=== PATIENT | female | born 1965 | race Caucasian/White ===

== ENCOUNTER 2018-04-19 07:32 | Emergency (ER) | payer BC ==
--- OUTSIDE RECORDS SUMMARY | 2018-04-19 07:35 | XMS REPORT ---
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1 Active Assessment Mixed hyperlipidemia E78.2 Active Problem Grief F43.21 Active Assessment Atherosclerosis, generalized I70.91 Active Problem Angina at rest I20.8 Active Medications Medication Code Code Instructions Start End Status Dosage System Date Date Aspirin EC [facility] 51738021125 81 MG Orally Active 1 tablet Once a day Minivelle [facility] 60874066473 0.075 MG/24HR Active 1 patch Transdermal Two to skin times a Week Tylenol # 3 ND 0 300/30mg PO Active one tab every 6 hrs Topiramate ND 59389346606 25 MG Orally Active 2 tabs in Twice a day AM 1tab in PM Co-Enzyme Q10 ND 01632251641 100 MG Orally Active 1 capsule Once a day with a meal Cyclobenzaprine ND 79638290702 5 MG Orally Two Active 1 tablet HCl times a day as needed Fioricet [facility] 57534873778 50-300-40 MG Active 1-2 Orally every 4 capsule hrs as needed Premarin ND 74646061933 1.25 MG Orally Active 1 tablet Daily for Three Weeks, 1 Week off Diazepam [facility] 14048717614 10 MG Orally Active 1/2 to 1 PRN tablet as needed Nexium ND 74553997669 20 MG Orally Active 1 capsule Once a day Zetia [facility] 79516587810 10 MG Orally Active 1 tablet Once a day Prozac [facility] 02389556189 20 MG Orally Active 1 capsule Once a day in the morning Wellbutrin SR [facility] 65565050436 150 MG Orally Active 2tablets in AM 1 tablet in PM Results No Known Results Summary Purpose eClinicalWorks Submission
--- OUTSIDE RECORDS SUMMARY | 2018-04-19 07:35 | XMS REPORT ---
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 Active Problem Vitamin B12 deficiency E53.8 Active Problem Grief F43.21 Active Problem Angina at rest I20.8 Active Problem Mixed hyperlipidemia E78.2 Active Problem Paresthesia R20.2 Active Problem Depression with anxiety F41.8 Active Problem Low back pain, unspecified back M54.5 Active pain laterality, unspecified chronicity, with sciatica presence unspecified Problem Atherosclerosis, generalized I70.91 Active Problem GERD without esophagitis K21.9 Active Problem Elevated blood pressure reading R03.0 Active without diagnosis of hypertension Medications Medication Code Code Instructions Start End Status Dosage System Date Date Wellbutrin SR [facility] [address]-78 150 MG Orally Active 2tablets in AM 1 tablet in PM Minivelle [facility] 63573614532 0.075 MG/24HR Active 1 patch Transdermal Two to skin times a Week Nexium [facility] 66710814032 20 MG Orally Active 1 capsule Once a day Zetia [facility] 67691139384 10 MG Orally Active 1 tablet Once a day Aspirin EC [facility] 22633567523 81 MG Orally Active 1 tablet Once a day Fioricet [facility] [address]-20 50-300-40 MG Active 1-2 Orally every 4 capsule hrs as needed Prozac [facility] 26288418885 20 MG Orally Active 1 capsule Once a day in the morning Topiramate [facility] [address]-62 25 MG Orally Active 2 tabs in Twice a day AM 1tab in PM Tylenol # 3 ND 0 300/30mg PO Active one tab every 6 hrs Premarin [facility] 15201519412 1.25 MG Orally Active 1 tablet Daily for Three Weeks, 1 Week off Cyclobenzaprine [facility] [address]-51 5 MG Orally Two Active 1 tablet HCl times a day as needed Co-Enzyme Q10 [facility] [address]2397 100 MG Orally Active 1 capsule Once a day with a meal Diazepam [facility] 19712454376 10 MG Orally Active 1/2 to 1 PRN tablet as needed Results No Known Results Summary Purpose eClinicalWorks Submission
[2018-04-19] MEDS ORDERED: NA CHLORIDE 0.9% 1,000 ML ONE (08:15)
[2018-04-19] MEDS ORDERED: FENTANYL CITR 100 MCG/2 ML ONE (08:15)
--- NOTE | 2018-04-19 08:26 | RAD REPORT ---
EXAM DESCRIPTION: [facility]04/19/2018 8:05 am CLINICAL HISTORY: left leg pain COMPARISON: None. FINDINGS: Left common femoral, superficial femoral, popliteal and posterior tibial veins are compre ssible and demonstrate augmentation. Doppler demonstrates good flow. IMPRESSION: No evidence of deep venous thrombosis involving the left lower extremity.
[2018-04-19 09:52] LABS: Absolute Lymphocytes (CBC) 1.5 K/uL (0.7-4.9); Absolute Monocytes 0.4 K/uL (0.1-1.3); Absolute Neutrophil 3.6 K/uL (1.8-8.0); Basophils % 0.6 % (0-1.3); Eosinophils % 2.6 % (0-4.4); Hematocrit 43.4 % (36.0-45.0); Lymphocytes % 26.4 % (15.3-44.8); MCH 30.7 pg (27.0-35.0); MCV 91.2 fL (80-100); MPV 8.4 fL (7.6-11.3); Monocytes % 7.5 % (3.3-12.3); RBC Red Blood Cell Count 4.76 M/uL (3.86-4.86)
[2018-04-19 10:03] LABS: Protime INR 0.92
--- NOTE | 2018-04-19 10:38 | ER ---
Nurse's Notes [facility] Name: Hilary Alvarenga Age: 53 yrs Sex: Female : 1965 Arrival Date: 04/19/2018 Time: 07:35 Bed 15 Private MD: Racheal Angulo Diagnosis: Myalgia;Muscle spasm of calf Presentation: 04/19 07:41 Presenting complaint: Patient states: Pt states that she felt a "jim horse" to her ss L calf 4 days ago and since then her leg has been hurting. Also reports mild increase in swelling to affected leg. Transition of care: patient was not received from another setting of care. Onset of symptoms was April 15, 2018. Risk Assessment: Do you want to hurt yourself or someone else? Patient reports no desire to harm self or others. Initial Sepsis Screen: Does the patient meet any 2 criteria? No. Patient's initial sepsis screen is negative. Does the patient have a suspected source of infection? No. Patient's initial sepsis screen is negative. Care prior to arrival: None. 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 - Social history:: Smoking status: Patient/guardian denies using tobacco. - Ebola Screening: : Patient denies exposure to infectious person Patient denies travel to an Ebola-affected area in the 21 days before illness onset. Screenin:38 Abuse screen: Denies threats or abuse. Nutritional screening: No deficits noted. rb1 Tuberculosis screening: No symptoms or risk factors identified. Fall Risk None identified. Assessment: 07:38 General: Appears in no apparent distress. comfortable, Behavior is calm, cooperative. rb1 Pain: Complains of pain in left calf. Neuro: Level of Consciousness is awake, alert, obeys commands, Oriented to person, place, time, situation. Cardiovascular: Capillary refill < 3 seconds is brisk in bilateral toes. Respiratory: Airway is patent Respiratory effort is even, unlabored, Respiratory pattern is regular, symmetrical. 08:37 Reassessment: Patient appears in no apparent distress at this time. No changes from rb1 previously documented assessment. 09:37 Reassessment: Patient appears in no apparent distress at this time. Patient and/or rb1 family updated on plan of care and expected duration. Pain level reassessed. Patient is alert, oriented x 3, equal unlabored respirations, skin warm/dry/pink. at bedside. 10:30 Reassessment: Patient appears in no apparent distress at this time. Patient and/or rb1 family updated on plan of care and expected duration. Pain level reassessed. Patient is alert, oriented x 3, equal unlabored respirations, skin warm/dry/pink. 11:10 Reassessment: Patient appears in no apparent distress at this time. No changes from rb1 previously documented assessment. Vital Signs: 07:44 BP 157 / 81; Pulse 90; Resp 17; Temp 98.6(O); Pulse Ox 98% on R/A; Weight 90.72 kg; ss Height 4 ft. 11 in. (149.86 cm); Pain 6/10; 08:40 BP 144 / 86; Pulse 80; Resp 18; Pulse Ox 95% on R/A; rb1 09:32 BP 137 / 87; Pulse 79; Resp 17; Pulse Ox 96% on R/A; mh5 10:30 BP 128 / 72; Pulse 87; Resp 17; Pulse Ox 96% on R/A; rb1 07:44 Body Mass Index 40.39 (90.72 kg, 149.86 cm) ED Course: 07:35 Patient arrived in ED. sb2 07:35 Racheal Angulo MD is Private Physician. sb2 07:38 Ashlyn Carr FNP-C [facility]. snw 07:38 Reddy Piña MD is Attending Physician. snw 07:38 Katlyn Hernandez, ANGEL is Primary Nurse. rb1 07:38 Patient has correct armband on for positive identification. Bed in low position. Call rb1 light in reach. Side rails up X 1. Pulse ox on. NIBP on. Warm blanket given. 07:43 Triage completed. ss 07:44 Arm band placed on right wrist. ss 08:03 Patient taken to ultrasound. hr 08:05 US Extremity Venous Unilateral Ltd In Process Unspecified. EDMS 08:08 Missed attempt(s): 22 gauge in right antecubital area. rb1 08:50 Ultrasound completed. Patient tolerated well. hr 09:00 Missed attempt(s): 22 gauge in left forearm. upper arm. mh5 10:37 Racheal Angulo MD is Referral Physician. snw 11:10 No provider procedures requiring assistance completed. Patient did not have IV access rb1 during this emergency room visit. Administered Medications: 09:35 Drug: fentaNYL (PF) 50 mcg {Note: We were unable to access an IV so the provider rb1 switched the method to IM. Administered in the left gluteus.} Route: IVP; Site: Other; 10:00 Follow up: Response: No adverse reaction; Pain is decreased rb1 11:09 Not Given (provider discretion): NS 0.9% 1000 ml IV at 125 ml/hr continuous rb1 Outcome: 10:38 Discharge ordered by MD. snw 11:10 Patient left the ED. rb1 11:10 Discharged to home ambulatory. rb1 11:10 Condition: stable 11:10 Discharge instructions given to patient, Instructed on discharge instructions, follow up and referral plans. medication usage, Demonstrated understanding of instructions, follow-up care, medications, Prescriptions given X 2. Signatures: Dispatcher [employer] EDLA Ashlyn Carr, ARNAV-C HAND I BLOCKER-CsnSelma Stahl Shelby, ANGEL RN ss Katlyn Hernandez, RN RN rb1 Dolores Crockett 5 Brenda Jack sb2 Corrections: (The following items were deleted from the chart) 09:42 09:39 Reassessment: rb1 11:18 11:16 Patient left the ED. rb1 rb1
--- NOTE | 2018-04-19 10:39 | EDPHYS ---
Physician Documentation [facility] Name: Hilary Alvarenga Age: 53 yrs Sex: Female : 1965 Arrival Date: 04/19/2018 Time: 07:35 Bed 15 Private MD: Racheal Angulo ED Physician Reddy Piña HPI: 04/19 08:05 This 53 yrs old Female presents to ER via Ambulatory with complaints of Leg snw Pain. 08:05 The patient presents with pain, that is acute. The complaints affect the left calf. snw Context: The problem was sustained at home, resulted from muscle spasm, the patient is able to ambulate. Onset: The symptoms/episode began/occurred suddenly, 4 day(s) ago, and became persistent. Associated signs and symptoms: Pertinent positives: calf tenderness. Treatment prior to arrival includes: no previous treatment. Severity of symptoms: At their worst the symptoms were moderate. The patient has not experienced similar symptoms in the past. The patient has been recently seen by a physician: the patient's primary care provider, Dr. Azul. Seen at PCP per Dr. Chang as PCP was out of town. Pt states he recommended counseling for somatic complaints. 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 - Social history:: Smoking status: Patient/guardian denies using tobacco. - Ebola Screening: : Patient denies exposure to infectious person Patient denies travel to an Ebola-affected area in the 21 days before illness onset. ROS: 08:04 Constitutional: Negative for fever, chills, and weight loss, Eyes: Negative for injury, snw pain, redness, and discharge, ENT: Negative for injury, pain, and discharge, Neck: Negative for injury, pain, and swelling, Cardiovascular: Negative for chest pain, palpitations, and edema, Respiratory: Negative for shortness of breath, cough, wheezing, and pleuritic chest pain, Abdomen/GI: Negative for abdominal pain, nausea, vomiting, diarrhea, and constipation, Back: Negative for injury and pain, : Negative for injury, bleeding, discharge, and swelling, Skin: Negative for injury, rash, and discoloration, Neuro: Negative for headache, weakness, numbness, tingling, and seizure. 08:04 MS/extremity: Positive for pain, swelling, tenderness, of the left calf. Exam: 08:03 Constitutional: This is a well developed, well nourished patient who is awake, alert, snw and in no acute distress. 08:03 Eyes: Pupils equal round and reactive to light, extra-ocular motions intact. Lids and lashes normal. Conjunctiva and sclera are non-icteric and not injected. Cornea within normal limits. Periorbital areas with no swelling, redness, or edema. ENT: Nares patent. No nasal discharge, no septal abnormalities noted. Tympanic membranes are normal and external auditory canals are clear. Oropharynx with no redness, swelling, or masses, exudates, or evidence of obstruction, uvula midline. Mucous membranes moist. Neck: Trachea midline, no thyromegaly or masses palpated, and no cervical lymphadenopathy. Supple, full range of motion without nuchal rigidity, or vertebral point tenderness. No Meningismus. Chest/axilla: Normal chest wall appearance and motion. Nontender with no deformity. No lesions are appreciated. Cardiovascular: Regular rate and rhythm with a normal S1 and S2. No gallops, murmurs, or rubs. Normal PMI, no JVD. No pulse deficits. Respiratory: Lungs have equal breath sounds bilaterally, clear to auscultation and percussion. No rales, rhonchi or wheezes noted. No increased work of breathing, no retractions or nasal flaring. Abdomen/GI: Soft, non-tender, with normal bowel sounds. No distension or tympany. No guarding or rebound. No evidence of tenderness throughout. + truncal obesity Back: No spinal tenderness. No costovertebral tenderness. Full range of motion. Skin: Warm, dry with normal turgor. Normal color with no rashes, no lesions, and no evidence of cellulitis. Neuro: Awake and alert, GCS 15, oriented to person, place, time, and situation. Cranial nerves II-XII grossly intact. Motor strength 5/5 in all extremities. Sensory grossly intact. Cerebellar exam normal. Normal gait. Psych: Awake, alert, with orientation to person, place and time. Behavior, mood, and affect are within normal limits. 08:03 Head/face: Noted is rash, Malar. 08:03 Musculoskeletal/extremity: ROM: no acute changes, Circulation is intact in all extremities. the left calf Severe pain noted. Weight bearing: able to fully bear weight, DVT Exam: tenderness, that is moderate, of the left leg, of the left calf. Vital Signs: 07:44 BP 157 / 81; Pulse 90; Resp 17; Temp 98.6(O); Pulse Ox 98% on R/A; Weight 90.72 kg; ss Height 4 ft. 11 in. (149.86 cm); Pain 6/10; 08:40 BP 144 / 86; Pulse 80; Resp 18; Pulse Ox 95% on R/A; rb1 09:32 BP 137 / 87; Pulse 79; Resp 17; Pulse Ox 96% on R/A; mh5 10:30 BP 128 / 72; Pulse 87; Resp 17; Pulse Ox 96% on R/A; rb1 07:44 Body Mass Index 40.39 (90.72 kg, 149.86 cm) ss MDM: 07:38 Patient medically screened. snw 10:40 Data reviewed: vital signs, nurses notes. Data interpreted: Pulse oximetry: on room air snw is 96 %. Interpretation: normal. Counseling: I had a detailed discussion with the patient and/or guardian regarding: the historical points, exam findings, and any diagnostic results supporting the discharge/admit diagnosis, the presence of at least one elevated blood pressure reading (>120/80) during this emergency department visit, lab results, radiology results, the need for outpatient follow up, to return to the emergency department if symptoms worsen or persist or if there are any questions or concerns that arise at home. ED course: Pt reports that Malar rash and intermittent respiratory symptoms have occurred over the past few months. Discussed with pt life threatening reasons for current concern in the ED have been ruled out. Encouraged to follow up on constellation of symptoms that are new over the past few months. 04/19 08:03 Order name: CBC with Diff; Complete Time: 10:25 snw 04/19 08:03 Order name: Sed Rate; Complete Time: 10:25 snw 04/19 08:03 Order name: Chem 7; Complete Time: 10:31 snw 04/19 08:03 Order name: Misc. Lab Test w 04/19 08:03 Order name: PT-INR; Complete Time: 10:12 snw 04/19 08:03 Order name: Ptt, Activated; Complete Time: 10:12 snw 04/19 07:48 Order name: US Extremity Venous Unilateral Ltd; Complete Time: 08:32 snw 04/19 08:22 Order name: TSH 04/19 10:40 Order name: MELANY IFA Screen w/Reflex EDMS Administered Medications: 09:35 Drug: fentaNYL (PF) 50 mcg {Note: We were unable to access an IV so the provider rb1 switched the method to IM. Administered in the left gluteus.} Route: IVP; Site: Other; 10:00 Follow up: Response: No adverse reaction; Pain is decreased rb1 11:09 Not Given (provider discretion): NS 0.9% 1000 ml IV at 125 ml/hr continuous rb1 Disposition: 15:01 Co-signature as Attending Physician, Reddy Piña MD. rn Disposition: 04/19/18 10:38 Discharged to Home. Impression: Myalgia, Muscle spasm of calf. - Condition is Stable. - Discharge Instructions: Muscle Pain, Adult, Cryotherapy, Heat Therapy. - Prescriptions for Diclofenac Sodium 75 mg Oral Tablet Sustained Release - take 1 tablet by ORAL route 2 times per day; 30 tablet. orphenadrine citrate 100 mg Oral Tablet Sustained Release - take 1 tablet by ORAL route 2 times per day As needed; 20 tablet. - Medication Reconciliation Form, Thank You Letter, Antibiotic Education, Prescription Opioid Use form. - Follow up: Racheal Angulo MD; When: 1 week; Reason: Recheck today's complaints, Continuance of care, Re-evaluation by your physician. Follow up: Emergency Department; When: As needed; Reason: Worsening of condition. Signatures: Dispatcher [employer] EDMS Ashlyn Carr FNP-C CUTTER DOWN-Csnw Reddy Piña MD MD rn Smirch, Shelby, RN RN ss Katlyn Hernandez, RN RN rb1 Corrections: (The following items were deleted from the chart) 11:16 10:38 04/19/2018 10:38 Discharged to Home. Impression: Myalgia; Muscle spasm of calf. rb1 Condition is Stable. Forms are Medication Reconciliation Form, Thank You Letter, Antibiotic Education, Prescription Opioid Use. Follow up: Racheal Angulo; When: 1 week; Reason: Recheck today's complaints, Continuance of care, Re-evaluation by your physician. Follow up: Emergency Department; When: As needed; Reason: Worsening of condition. snw
== END 2018-04-19 11:16 | disposition home or self-care (01) ==
LOC: ER 07:32
DX: M79.1 Myalgia (principal); M62.831 Muscle spasm of calf; E78.5 Hyperlipidemia, unspecified; Z88.0 Allergy status to penicillin
CPT/HCPCS: 36415; 80048; 84443; 85025; 85610; 85652; 85730; 86038; 93971; 96374; 99284; J3010; J7030

== ENCOUNTER 2018-06-28 15:03 | Emergency (ER) | payer BC ==
--- OUTSIDE RECORDS SUMMARY | 2018-06-28 15:07 | XMS REPORT ---
:1965 Author Organization eClinicalWorks Care Team Providers Name Role Phone Racheal Angulo Provider Role Unavailable Allergies No Known Allergies Problems Problem Type Condition Code Onset Dates Condition Status Problem Insomnia G47.00 Active Problem B12 deficiency E53.8 Active Problem Gastroesophageal reflux K21.9 Active Problem Anxiety and depression F41.8 Active Problem Obese E66.9 Active Problem Generalized atherosclerosis I70.91 Active Problem Low back pain, unspecified back M54.5 Active pain laterality, unspecified chronicity, with sciatica presence unspecified Problem Migraine, unspecified, intractable, G43.911 Active with status migrainosus Problem Elevated blood pressure reading R03.0 Active without diagnosis of hypertension Problem Hyperlipemia E78.5 Active Problem 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 Active Problem Hypertension, unspecified type I10 Active Problem Atherosclerosis, generalized I70.91 Active Problem Vitamin D deficiency E55.9 Active Problem Menopausal symptoms N95.1 Active Problem Acute low back pain M54.5 Active Problem Obstructive sleep apnea G47.33 Active Problem Anxiety F41.9 Active Problem Hand paresthesia R20.2 Active Problem Hyperlipidemia, unspecified E78.5 Active hyperlipidemia type Problem Prediabetes R73.03 Active Problem Muscle cramps R25.2 Active Problem Atherosclerosis of both carotid I65.23 Active arteries Problem JAILYN (obstructive sleep apnea) G47.33 Active Problem Vitamin B12 deficiency E53.8 Active Problem Grief F43.21 Active Problem Angina at rest I20.8 Active Problem GERD without esophagitis K21.9 Active Problem Depression with anxiety F41.8 Active Problem Paresthesia R20.2 Active Problem Mixed hyperlipidemia E78.2 Active Medications No Known Medications Results No Known Results Summary Purpose eClinicalWorks Submission
--- OUTSIDE RECORDS SUMMARY | 2018-06-28 15:07 | XMS REPORT ---
[...] Status Dosage System Date Date Aspirin EC [facility] 90949254549 81 MG Orally Active 1 tablet Once a day Minivelle [facility] 82511454887 0.075 MG/24HR Active 1 patch Transdermal Two to skin times a Week Tylenol # 3 ND 0 300/30mg PO Active one tab every 6 hrs Topiramate ND 00033562867 25 MG Orally Active 2 tabs in Twice a day AM 1tab in PM Co-Enzyme Q10 ND 60731810682 100 MG Orally Active 1 capsule Once a day with a meal Cyclobenzaprine ND 53777324081 5 MG Orally Two Active 1 tablet HCl times a day as needed Fioricet [facility] 20097284505 50-300-40 MG Active 1-2 Orally every 4 capsule hrs as needed Premarin ND 46484614369 1.25 MG Orally Active 1 tablet Daily for Three Weeks, 1 Week off Diazepam [facility] 56123774136 10 MG Orally Active 1/2 to 1 PRN tablet as needed Nexium ND 24158239912 20 MG Orally Active 1 capsule Once a day Zetia [facility] 14356710054 10 MG Orally Active 1 tablet Once a day Prozac [facility] 60626771932 20 MG Orally Active 1 capsule Once a day in the morning Wellbutrin SR [facility] 28990322989 150 MG Orally Active 2tablets in AM 1 tablet in PM Results No Known Results Summary Purpose eClinicalWorks Submission
--- OUTSIDE RECORDS SUMMARY | 2018-06-28 15:07 | XMS REPORT ---
[...] Status Dosage System Date Date Wellbutrin SR [facility] [address]-78 150 MG Orally Active 2tablets in AM 1 tablet in PM Minivelle [facility] 08191313616 0.075 MG/24HR Active 1 patch Transdermal Two to skin times a Week Nexium [facility] 34383156960 20 MG Orally Active 1 capsule Once a day Zetia [facility] 16617428642 10 MG Orally Active 1 tablet Once a day Aspirin EC [facility] 71250803004 81 MG Orally Active 1 tablet Once a day Fioricet [facility] [address]-12 50-300-40 MG Active 1-2 Orally every 4 capsule hrs as needed Prozac [facility] 46072610603 20 MG Orally Active 1 capsule Once a day in the morning Topiramate [facility] [address]-45 25 MG Orally Active 2 tabs in Twice a day AM 1tab in PM Tylenol # 3 ND 0 300/30mg PO Active one tab every 6 hrs Premarin [facility] 83412072220 1.25 MG Orally Active 1 tablet Daily for Three Weeks, 1 Week off Cyclobenzaprine [facility] [address]-24 5 MG Orally Two Active 1 tablet HCl times a day as needed Co-Enzyme Q10 [facility] [address]45 100 MG Orally Active 1 capsule Once a day with a meal Diazepam [facility] 10799252483 10 MG Orally Active 1/2 to 1 PRN tablet as needed Results No Known Results Summary Purpose eClinicalWorks Submission
--- OUTSIDE RECORDS SUMMARY | 2018-06-28 15:07 | XMS REPORT ---
:1965 Author Organization eClinicalWorks Care Team Providers Name Role Phone Adele Racheal Provider Role Unavailable Allergies, Adverse Reactions, Alerts Substance Reaction Event Type penicillin Info Not Available Drug Allergy Problems Problem Type Condition Code Onset Dates Condition Status Assessment Muscle cramps R25.2 Active Assessment Follow-up exam Z09 Active Problem Insomnia G47.00 Active Problem B12 deficiency [...] Active Problem Obstructive sleep apnea G47.33 Active Assessment Vitamin B12 deficiency E53.8 Active Problem Anxiety F41.9 Active Problem Hand paresthesia R20.2 Active Assessment Menopausal symptoms N95.1 Active Problem Hyperlipidemia, unspecified E78.5 Active hyperlipidemia type Assessment Anxiety F41.9 Active Problem Prediabetes R73.03 Active Problem Muscle cramps R25.2 Active Problem Atherosclerosis of both carotid I65.23 Active arteries Assessment Atherosclerosis of both carotid I65.23 Active arteries Problem JAILYN (obstructive sleep apnea) G47.33 Active Assessment Hypertension, unspecified type I10 Active Problem Vitamin B12 deficiency E53.8 Active Assessment Hyperlipidemia, unspecified E78.5 Active hyperlipidemia type Problem Grief F43.21 Active Assessment Prediabetes R73.03 Active Problem Angina at rest I20.8 Active Assessment Vitamin D deficiency E55.9 Active Problem GERD without esophagitis K21.9 Active Assessment GERD without esophagitis K21.9 Active Problem Depression with anxiety F41.8 Active Problem Paresthesia R20.2 Active Problem Mixed hyperlipidemia E78.2 Active Medications Medication Code Code Instructions Start End Status Dosage System Date Date Aspirin EC [facility] 77296477903 81 MG Orally Active 1 tablet Once a day Co-Enzyme Q10 [facility] 95140910047 100 MG Orally Active 1 capsule Once a day with a meal Zetia [facility] 97522784311 10 MG Orally Active 1 tablet Once a day Minivelle [facility] 33088721244 0.075 MG/24HR Active 1 patch to Transdermal Two skin times a Week BusPIRone HCl ND 89299377204 7.5 MG Orally May 24, Active 1 tablet Twice daily 2017 as needed for anxiety Wellbutrin SR [facility] 43006737530 150 MG Orally Active 2tablets in AM 1 tablet in PM Pravastatin Sodium ND 88226816801 10 MG Orally May 24, Active 1 tablet Once daily in 2017 (for high evening cholestero l) Cyclobenzaprine [facility] 97662922397 10 MG Orally Oct Active 1/2 to 1 HCl Two times a day 08, tablet as [address] [facility] 92017245937 25 MG Orally Active 2 tabs in Twice a day AM 1tab in PM Tylenol # 3 ND 0 300/30mg PO Active one tab every 6 hrs Vitamin B12 [facility] [address] subcutaneous Active as as directed directed Prozac [facility] 50898393625 20 MG Orally Active 1 capsule Once a day in the morning Fioricet [facility] 36594207079 50-300-40 MG Active 1-2 Orally every 4 capsule as hrs needed Nexium [facility] 89463123533 20 mg Orally Active 1 capsule Once a day Premarin ND 98407490334 1.25 MG Orally Active 1 tablet Daily for Three Weeks, 1 Week off Diazepam ND 61518984119 10 MG Orally Active 1/2 to 1 PRN tablet as needed Losartan Potassium ND 99988265284 50 MG Orally May 24, Active 1 tablet Once a day 2017 (for high blood pressure) Results No Known Results Summary Purpose eClinicalWorks Submission
[2018-06-28 17:18] LABS: Absolute Lymphocytes (CBC) 1.6 K/uL (0.7-4.9); Absolute Monocytes 0.5 K/uL (0.1-1.3); Absolute Neutrophil 4.5 K/uL (1.8-8.0); Basophils % 0.5 % (0-1.3); Hematocrit 42.1 % (36.0-45.0); Lymphocytes % 23.6 % (15.3-44.8); MCV 92.1 fL (80-100); MPV 8.2 fL (7.6-11.3); Monocytes % 7.2 % (3.3-12.3); RBC Red Blood Cell Count 4.57 M/uL (3.86-4.86)
[2018-06-28 17:44] LABS: Potassium 3.7 mmol/L (3.5-5.1)
--- NOTE | 2018-06-28 18:15 | RAD REPORT ---
EXAM DESCRIPTION: CT - Soft Tissue Neck W/Contr CLINICAL HISTORY: sub mental swelling COMPARISON: No comparisons TECHNIQUE All CT scans are performed using dose optimization technique as appropriate and may includ e automated exposure control or mA/KV adjustment according to patient size. FINDINGS: A mildly prominent but benign appearing submental lymph node is present measuring 9 mm. A fatty hilus is noted. Adjacent smaller submental lymph node measuring 5 mm is also seen. No intrinsic neck mass is identified. Small tonsilliths are present bilaterally, greater on the right . The salivary glands are symmetric. Few mildly prominent jugular chain lymph nodes are seen bilatera lly, the largest at level II on the left measuring 8 mm in short axis. No abscess is suspected. No laryngeal mass suspected. Thyroid gland is normal in size. IMPRESSION: Submental lymph nodes with benign features.
--- NOTE | 2018-06-28 18:24 | ER ---
Nurse's Notes [facility] Name: Hilary Alvarenga Age: 53 yrs Sex: Female : 1965 Arrival Date: 06/28/2018 Time: 15:06 Bed 27 Private MD: Racheal Angulo Diagnosis: Acute lymphadenitis Presentation: 06/28 15:22 Presenting complaint: Patient states: " I woke up w/ a swollen spot under my chin and ph then it got bigger throughout the morning. [place] [facility] [place] which was negative and cent me home on Clindamycin and prednisone but then she called me and told me to come here for a CT to make sure it wasn't an abscess." Pt denies sore throat, fever, V/D, reports nausea, also states that she had an EGD done yesterday. Transition of care: patient was not received from another setting of care. Onset of symptoms was June 28, 2018. Risk Assessment: Do you want to hurt yourself or someone else? Patient reports no desire to harm self or others. Initial Sepsis Screen: Does the patient meet any 2 criteria? No. Patient's initial sepsis screen is negative. Does the patient have a suspected source of infection? No. Patient's initial sepsis screen is negative. Care prior to arrival: None. 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 LMP N/A - Hysterectomy ph Historical: - Allergies: 15:28 Amoxicillin; ph 15:28 PENICILLINS; ph - Home Meds: 15:31 esomeprazole magnesium 20 mg oral cpDR 1 cap once daily [Active]; venlafaxine 75 mg ph oral cp24 1 cap once daily [Active]; pravastatin 10 mg oral tab 1 tab once daily [Active]; losartan 50 mg oral tab 1 tab once daily [Active]; buspirone 7.5 mg Oral tab as needed [Active]; cyclobenzaprine 10 mg Oral tab as needed [Active]; aspirin 81 mg Oral TbEC 1 tab once daily [Active]; - PMHx: 15:28 Anxiety; Cholelithiasis; Depression; Hyperlipidemia; Migraines; Sleep Apnea; ph - PSHx: 15:28 Hysterectomy; Appendectomy; Carpal Tunnel Repair; Tubal ligation; D \\T\\ C; ph - Immunization history:: Adult Immunizations unknown. - Social history:: Smoking status: Patient/guardian denies using tobacco. - Ebola Screening: : No symptoms or risks identified at this time. Screenin:56 Abuse screen: Denies threats or abuse. Denies injuries from another. Nutritional rv screening: No deficits noted. Tuberculosis screening: No symptoms or risk factors identified. Fall Risk None identified. Assessment: 15:54 General: Appears in no apparent distress. comfortable, Behavior is calm, cooperative. rv Pain: Complains of pain in UNDER THE CHIN Pain currently is 3 out of 10 on a pain scale. at worst was 7 out of 10 on a pain scale. Aggravated by TOUCH. Neuro: Level of Consciousness is awake, alert, obeys commands, Oriented to person, place, time, situation. Cardiovascular: Capillary refill < 3 seconds. Respiratory: Airway is patent. GI: No signs and/or symptoms were reported involving the gastrointestinal system. : No signs and/or symptoms were reported regarding the genitourinary system. EENT: SWELLING UNDER THE CHIN. Derm: Skin is intact. Musculoskeletal:. 17:30 Reassessment: Patient appears in no apparent distress at this time. Patient and/or rv family updated on plan of care and expected duration. Pain level reassessed. Patient is alert, oriented x 3, equal unlabored respirations, skin warm/dry/pink. 18:16 Reassessment: Patient appears in no apparent distress at this time. Patient and/or rv family updated on plan of care and expected duration. Pain level reassessed. Patient is alert, oriented x 3, equal unlabored respirations, skin warm/dry/pink. awaiting CT scan result. 18:50 Reassessment: Patient appears in no apparent distress at this time. Patient and/or rv family updated on plan of care and expected duration. Pain level reassessed. Patient is alert, oriented x 3, equal unlabored respirations, skin warm/dry/pink. Vital Signs: 15:25 BP 145 / 76; Pulse 72; Resp 18; Temp 97.6(TE); Pulse Ox 99% on R/A; Weight 93.44 kg; ph Height 4 ft. 11 in. (149.86 cm); Pain 7/10; 15:53 BP 143 / 78; Pulse 77; Pulse Ox 98% on R/A; rv 16:31 BP 143 / 106; Pulse 80; Pulse Ox 98% on R/A; rv 17:30 BP 136 / 69; Pulse 75; Pulse Ox 96% on R/A; rv 18:15 BP 123 / 87; Pulse 67; Pulse Ox 97% on R/A; rv 18:50 BP 128 / 71; Pulse 73; Pulse Ox 96% on R/A; rv 15:25 Body Mass Index 41.61 (93.44 kg, 149.86 cm) ph ED Course: 15:06 Patient arrived in ED. sb2 15:06 Racheal Angulo MD is Private Physician. sb2 15:13 Bonifacio Quinones PA is PHCP. jr8 15:13 Reddy Piña MD is Attending Physician. jr8 15:25 Triage completed. ph 15:28 Arm band placed on. ph 15:56 Patient has correct armband on for positive identification. Bed in low position. Call rv light in reach. Side rails up X 1. Pulse ox on. NIBP on. 16:50 Radiology exam delayed due to lab results not completed at this time. (BUN/Creatinine). jg6 16:50 Initial lab(s) drawn, by md, sent to lab. Inserted saline lock: 22 gauge in left jp3 forearm, using aseptic technique. Blood collected. 16:58 Warm blanket given. Pillow given. jp3 16:58 Basic Metabolic Panel Sent. jp3 16:58 CBC with Diff Sent. jp3 17:28 Radiology exam delayed due to lab results not completed at this time. (BUN/Creatinine). jg6 17:37 Radiology exam delayed due to lab results not completed at this time. (BUN/Creatinine). 2 17:57 Patient moved to SD via wheelchair. nj 18:00 CT completed. Patient tolerated procedure well. Patient moved back from CT. nj 18:00 CT Soft Tissue Neck W/contr In Process Unspecified. EDMS 18:23 Racheal Angulo MD is Referral Physician. jr8 18:51 No provider procedures requiring assistance completed. IV discontinued, bleeding rv controlled, No redness/swelling at site. Pressure dressing applied. Administered Medications: No medications were administered Outcome: 18:23 Discharge ordered by . jr8 18:51 Discharged to home ambulatory. rv 18:51 Condition: good 18:51 Discharge instructions given to patient, Instructed on discharge instructions, follow up and referral plans. Demonstrated understanding of instructions, follow-up care. 19:01 Patient left the ED. rv Signatures: Dispatcher [employer] EDBonifacio Reich PA PA jr8 Nicolle Lee, RN RN Ayush, Yu Lo 2 Brenda Jack2 Jimmie Rogers RN RN De Winter jp3 Jacque Macias6
--- NOTE | 2018-06-28 18:24 | EDPHYS ---
Physician Documentation [facility] Name: Hilary Alvarenga Age: 53 yrs Sex: Female : 1965 Arrival Date: 06/28/2018 Time: 15:06 Bed 27 Private MD: Racheal Angulo ED Physician Reddy Piña HPI: 06/28 17:17 This 53 yrs old Female presents to ER via Ambulatory with complaints of jr8 Swollen Glands. 17:17 The patient or guardian complains of swelling, tenderness. The symptoms are located on jr8 the neck. Onset: The symptoms/episode began/occurred acutely, today. Associated signs and symptoms: The patient has no apparent associated signs or symptoms. The pain does not radiate. Modifying factors: The symptoms are alleviated by nothing. the symptoms are aggravated by movement, pressure. Severity of symptoms: At their worst the symptoms were moderate, in the emergency department the symptoms are unchanged. The patient has not experienced similar symptoms in the past. The patient has been recently seen by a physician:. Patient had undergone an endoscopy yesterday without complication. Stated that this morning woke up with swelling and pain to submental region of face. Saw urgent care and referred her to us . 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 - Hysterectomy ph Historical: - Allergies: 15:28 Amoxicillin; ph 15:28 PENICILLINS; ph - Home Meds: 15:31 esomeprazole magnesium 20 mg oral cpDR 1 cap once daily [Active]; venlafaxine 75 mg ph oral cp24 1 cap once daily [Active]; pravastatin 10 mg oral tab 1 tab once daily [Active]; losartan 50 mg oral tab 1 tab once daily [Active]; buspirone 7.5 mg Oral tab as needed [Active]; cyclobenzaprine 10 mg Oral tab as needed [Active]; aspirin 81 mg Oral TbEC 1 tab once daily [Active]; - PMHx: 15:28 Anxiety; Cholelithiasis; Depression; Hyperlipidemia; Migraines; Sleep Apnea; ph - PSHx: 15:28 Hysterectomy; Appendectomy; Carpal Tunnel Repair; Tubal ligation; D \T\ C; ph - Immunization history:: Adult Immunizations unknown. - Social history:: Smoking status: Patient/guardian denies using tobacco. - Ebola Screening: : No symptoms or risks identified at this time. ROS: 17:17 Eyes: Negative for injury, pain, redness, and discharge, ENT: Negative for injury, jr8 pain, and discharge, Cardiovascular: Negative for chest pain, palpitations, and edema, Respiratory: Negative for shortness of breath, cough, wheezing, and pleuritic chest pain, Abdomen/GI: Negative for abdominal pain, nausea, vomiting, diarrhea, and constipation, Back: Negative for injury and pain, MS/Extremity: Negative for injury and deformity, Skin: Negative for injury, rash, and discoloration, Neuro: Negative for headache, weakness, numbness, tingling, and seizure. 17:17 Neck: Positive for swelling, tenderness, of the submental region . Exam: 17:17 Head/Face: Normocephalic, atraumatic. Eyes: Pupils equal round and reactive to light, jr8 extra-ocular motions intact. Lids and lashes normal. Conjunctiva and sclera are non-icteric and not injected. Cornea within normal limits. Periorbital areas with no swelling, redness, or edema. ENT: Nares patent. No nasal discharge, no septal abnormalities noted. Tympanic membranes are normal and external auditory canals are clear. Oropharynx with no redness, swelling, or masses, exudates, or evidence of obstruction, uvula midline. Mucous membranes moist. Cardiovascular: Regular rate and rhythm with a normal S1 and S2. No gallops, murmurs, or rubs. Normal PMI, no JVD. No pulse deficits. Respiratory: Lungs have equal breath sounds bilaterally, clear to auscultation and percussion. No rales, rhonchi or wheezes noted. No increased work of breathing, no retractions or nasal flaring. Abdomen/GI: Soft, non-tender, with normal bowel sounds. No distension or tympany. No guarding or rebound. No evidence of tenderness throughout. Back: No spinal tenderness. No costovertebral tenderness. Full range of motion. Skin: Warm, dry with normal turgor. Normal color with no rashes, no lesions, and no evidence of cellulitis. MS/ Extremity: Pulses equal, no cyanosis. Neurovascular intact. Full, normal range of motion. Neuro: Awake and alert, GCS 15, oriented to person, place, time, and situation. Cranial nerves II-XII grossly intact. Motor strength 5/5 in all extremities. Sensory grossly intact. Cerebellar exam normal. Normal gait. 17:17 Neck: External neck: swelling, of the submental area, tenderness, that is moderate, of the submental area, Thyroid: appears normal, Trachea: is midline with no obvious abnormalities, ROM/movement: is normal, is supple, without pain, no range of motions limitations, no meningismus, no nuchal rigidity, negative Brudzinski's sign, negative Kernig's sign. Vital Signs: 15:25 BP 145 / 76; Pulse 72; Resp 18; Temp 97.6(TE); Pulse Ox 99% on R/A; Weight 93.44 kg; ph Height 4 ft. 11 in. (149.86 cm); Pain 7/10; 15:53 BP 143 / 78; Pulse 77; Pulse Ox 98% on R/A; rv 16:31 BP 143 / 106; Pulse 80; Pulse Ox 98% on R/A; rv 17:30 BP 136 / 69; Pulse 75; Pulse Ox 96% on R/A; rv 18:15 BP 123 / 87; Pulse 67; Pulse Ox 97% on R/A; rv 18:50 BP 128 / 71; Pulse 73; Pulse Ox 96% on R/A; rv 15:25 Body Mass Index 41.61 (93.44 kg, 149.86 cm) ph MDM: 15:13 Patient medically screened. jr8 18:23 Data reviewed: vital signs, nurses notes, lab test result(s), radiologic studies, CT jr8 scan, and as a result, I will discharge patient. Data interpreted: Pulse oximetry: on room air is 97 %. Interpretation: normal. Counseling: I had a detailed discussion with the patient and/or guardian regarding: the historical points, exam findings, and any diagnostic results supporting the discharge/admit diagnosis, lab results, radiology results, the need for outpatient follow up, a family practitioner, to return to the emergency department if symptoms worsen or persist or if there are any questions or concerns that arise at home. 06/28 16:34 Order name: CBC with Diff; Complete Time: 17:43 8 06/28 16:34 Order name: Basic Metabolic Panel; Complete Time: 17:47 06/28 16:34 Order name: IV; Complete Time: 16:58 06/28 16:34 Order name: CT Soft Tissue Neck W/contr; Complete Time: 18:22 jr8 Administered Medications: No medications were administered Disposition: 06/28/18 18:23 Discharged to Home. Impression: Acute lymphadenitis. - Condition is Stable. - Discharge Instructions: Lymphadenopathy. - Prescriptions for Tylenol- Codeine #3 300-30 mg Oral Tablet - take 2 tablets by ORAL route every 6 hours As needed; 20 tablet. - Medication Reconciliation Form, Thank You Letter, Antibiotic Education, Prescription Opioid Use form. - Follow up: Racheal Angulo MD; When: 2 - 3 days; Reason: Recheck today's complaints, Continuance of care, Re-evaluation by your physician. - Problem is new. - Symptoms have improved. Addendum: 07/03/2018 07:03 Co-signature as Attending Physician, Reddy Piña MD. r n Signatures: Dispatcher [employer] EDMS Reddy Piña MD MD rn Joni, Bonifacio, PA PA jr8 Nicolle Lee RN RN Jimmie Vazquez RN RN rv Corrections: (The following items were deleted from the chart) 06/28 19:01 18:23 06/28/2018 18:23 Discharged to Home. Impression: Acute lymphadenitis. Condition rv is Stable. Forms are Medication Reconciliation Form, Thank You Letter, Antibiotic Education, Prescription Opioid Use. Follow up: Racheal Angulo; When: 2 - 3 days; Reason: Recheck today's complaints, Continuance of care, Re-evaluation by your physician. Problem is new. Symptoms have improved. jr8
== END 2018-06-28 19:01 | disposition home or self-care (01) ==
LOC: ER 15:03
DX: L04.0 Acute lymphadenitis of face, head and neck (principal); E78.5 Hyperlipidemia, unspecified; F41.9 Anxiety disorder, unspecified; F32.9 Major depressive disorder, single episode, unspecified; Z79.82 Long term (current) use of aspirin; Z88.0 Allergy status to penicillin; Z88.1 Allergy status to other antibiotic agents
CPT/HCPCS: 36415; 70491; 80048; 85025; 99284; Q9967

== ENCOUNTER 2019-04-25 07:39 | Emergency (ER) | payer BC ==
--- OUTSIDE RECORDS SUMMARY | 2019-04-25 07:41 | XMS REPORT ---
[...] Status Dosage System Date Date Aspirin EC [facility] 81425188204 81 MG Orally Active 1 tablet Once a day Minivelle [facility] 82995197004 0.075 MG/24HR Active 1 patch Transdermal Two to skin times a Week Tylenol # 3 ND 0 300/30mg PO Active one tab every 6 hrs Topiramate ND 75280637179 25 MG Orally Active 2 tabs in Twice a day AM 1tab in PM Co-Enzyme Q10 ND 99731797725 100 MG Orally Active 1 capsule Once a day with a meal Cyclobenzaprine ND 56898061743 5 MG Orally Two Active 1 tablet HCl times a day as needed Fioricet [facility] 12146875605 50-300-40 MG Active 1-2 Orally every 4 capsule hrs as needed Premarin ND 42209790247 1.25 MG Orally Active 1 tablet Daily for Three Weeks, 1 Week off Diazepam [facility] 55255960214 10 MG Orally Active 1/2 to 1 PRN tablet as needed Nexium ND 16425189833 20 MG Orally Active 1 capsule Once a day Zetia [facility] 16145875474 10 MG Orally Active 1 tablet Once a day Prozac [facility] 47926915308 20 MG Orally Active 1 capsule Once a day in the morning Wellbutrin SR [facility] 47926482920 150 MG Orally Active 2tablets in AM 1 tablet in PM Results No Known Results Summary Purpose eClinicalWorks Submission
--- OUTSIDE RECORDS SUMMARY | 2019-04-25 07:41 | XMS REPORT ---
:1965 Author Organization eClinicalWorks Care Team Providers Name Role Phone Adele Racheal Provider Role Unavailable Allergies, Adverse Reactions, Alerts Substance Reaction Event Type penicillin Info Not Available Drug Allergy Problems Problem Type Condition Code Onset Dates Condition Status Problem Insomnia G47.00 Active Problem B12 deficiency E53.8 Active Problem Hyperlipemia E78.5 Active Problem Gastroesophageal reflux K21.9 Active Problem Generalized atherosclerosis I70.91 Active Problem Migraine, unspecified, intractable, G43.911 Active with status migrainosus Problem Obstructive sleep apnea G47.33 Active Problem Hand paresthesia R20.2 Active Problem Acute low back pain M54.5 Active Problem Hypertension, unspecified type I10 Active Problem Prediabetes R73.03 Active Problem Grief F43.21 Active Problem Atherosclerosis of both carotid I65.23 Active arteries Problem Vitamin D deficiency E55.9 Active Problem Hyperlipidemia, unspecified E78.5 Active hyperlipidemia type Problem Obesity (BMI 30-39.9) E66.9 Active Problem CPAP (continuous positive airway Z99.89 Active pressure) dependence Problem Mixed hyperlipidemia E78.2 Active Problem Paresthesia R20.2 Active Assessment Vitamin B12 deficiency E53.8 Active Problem Essential hypertension I10 Active Problem Angina at rest I20.8 Active Assessment Vitamin D deficiency E55.9 Active Problem Menopausal symptoms N95.1 Active Assessment Obesity (BMI 30-39.9) E66.9 Active Problem Anxiety F41.9 Active Assessment Migraine, unspecified, intractable, G43.911 Active with status migrainosus Problem Skin lesions L98.9 Active Assessment Anxiety F41.9 Active Problem Muscle cramps R25.2 Active Assessment Prediabetes R73.03 Active Problem Vitamin B12 deficiency E53.8 Active Assessment Essential hypertension I10 Active Problem Low back pain, unspecified back M54.5 Active pain laterality, unspecified chronicity, with sciatica presence unspecified Assessment JAILYN (obstructive sleep apnea) G47.33 Active Problem Depression with anxiety F41.8 Active Assessment Mixed hyperlipidemia E78.2 Active Problem JAILYN (obstructive sleep apnea) G47.33 Active Assessment GERD without esophagitis K21.9 Active Problem 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 Active Assessment CPAP (continuous positive airway Z99.89 Active pressure) dependence Problem Atherosclerosis, generalized I70.91 Active Problem Elevated blood pressure reading R03.0 Active without diagnosis of hypertension Problem GERD without esophagitis K21.9 Active Medications Medication Code Code Instructions Start End Status Dosage System Date Date Topiramate [facility] 65495353292 25 mg Orally Active 1 tablet Once daily in evening Nexium [facility] 91445412384 20 mg Orally Active 1 capsule Once a day Premarin [facility] 21329868054 1.25 MG Orally Active 1 tablet Daily for Three Weeks, 1 Week off Wellbutrin SR [facility] 97385501813 150 MG Orally Active 1 tablet in Once a day the morning Pravastatin [facility] 53748771076 10 MG Orally May 24, Active 1 tablet Sodium Once daily in 2017 (for high evening cholesterol ) Tylenol # [address] [facility] 0 300/30mg PO Active one tab every [address] [facility] 39181360053 0.075 MG/24HR Active 1 patch to Transdermal Two skin times a Week Vitamin B12 [facility] [address] subcutaneous Active as directed as directed Aspirin EC [facility] 65081486386 81 MG Orally Active 1 tablet Once a day Prozac [facility] 58495045115 20 MG Orally Active 1 capsule Once a day in the morning Co-Enzyme Q10 [facility] 16181431769 100 MG Orally Active 1 capsule Once a day with a meal Diazepam [facility] 37941982478 10 MG Orally Active 1/2 to 1 PRN tablet as needed Losartan [facility] 38812514514 50 MG Orally May 24, Active 1 tablet Potassium Once a day 2017 (for high blood pressure) Zetia [facility] 69686824803 10 MG Orally Active 1 tablet Once a day Fioricet [facility] 13296160816 50-300-40 MG Active 1-2 capsule Orally every 4 as needed hrs BusPIRone HCl [facility] 77617979600 15 MG Orally May 24, Active 1 tablet Twice daily as 2018 needed for anxiety Results No Known Results Summary Purpose eClinicalWorks Submission
--- OUTSIDE RECORDS SUMMARY | 2019-04-25 07:41 | XMS REPORT ---
:1965 Author Organization eClinicalWorks Care Team Providers Name Role Phone Ronald Cahng Provider Role Unavailable Allergies, Adverse Reactions, Alerts [...] Status Dosage System Date Date Wellbutrin SR [facility] [address]-35 150 MG Orally Active 2tablets in AM 1 tablet in PM Minivelle [facility] 89918937433 0.075 MG/24HR Active 1 patch Transdermal Two to skin times a Week Nexium [facility] 43437863876 20 MG Orally Active 1 capsule Once a day Zetia [facility] 38063445041 10 MG Orally Active 1 tablet Once a day Aspirin EC [facility] 95542609199 81 MG Orally Active 1 tablet Once a day Fioricet [facility] [address]-66 50-300-40 MG Active 1-2 Orally every 4 capsule hrs as needed Prozac [facility] 44106376583 20 MG Orally Active 1 capsule Once a day in the morning Topiramate [facility] [address]-07 25 MG Orally Active 2 tabs in Twice a day AM 1tab in PM Tylenol # 3 ND 0 300/30mg PO Active one tab every 6 hrs Premarin [facility] 96289365561 1.25 MG Orally Active 1 tablet Daily for Three Weeks, 1 Week off Cyclobenzaprine [facility] [address]-87 5 MG Orally Two Active 1 tablet HCl times a day as needed Co-Enzyme Q10 [facility] [address] 100 MG Orally Active 1 capsule Once a day with a meal Diazepam [facility] 10193539595 10 MG Orally Active 1/2 to 1 PRN tablet as needed Results No Known Results Summary Purpose eClinicalWorks Submission
--- OUTSIDE RECORDS SUMMARY | 2019-04-25 07:41 | XMS REPORT ---
[...] Status Dosage System Date Date Aspirin EC [facility] 92076409245 81 MG Orally Active 1 tablet Once a day Co-Enzyme Q10 [facility] 71605735564 100 MG Orally Active 1 capsule Once a day with a meal Zetia [facility] 60581990714 10 MG Orally Active 1 tablet Once a day Minivelle [facility] 59859558747 0.075 MG/24HR Active 1 patch to Transdermal Two skin times a Week BusPIRone HCl ND 48689674758 7.5 MG Orally May 24, Active 1 tablet Twice daily 2017 as needed for anxiety Wellbutrin SR [facility] 44815169591 150 MG Orally Active 2tablets in AM 1 tablet in PM Pravastatin Sodium ND 30248409632 10 MG Orally May 24, Active 1 tablet Once daily in 2017 (for high evening cholestero l) Cyclobenzaprine [facility] 54561879418 10 MG Orally Oct Active 1/2 to 1 HCl Two times a day 08, tablet as 2018 needed Topiramate [facility] 62355008588 25 MG Orally Active 2 tabs in Twice a day AM 1tab in PM Tylenol # 3 ND 0 300/30mg PO Active one tab every 6 hrs Vitamin B12 [facility] [address] subcutaneous Active as as directed directed Prozac [facility] 27926347718 20 MG Orally Active 1 capsule Once a day in the morning Fioricet [facility] 38506096479 50-300-40 MG Active 1-2 Orally every 4 capsule as hrs needed Nexium [facility] 50412784926 20 mg Orally Active 1 capsule Once a day Premarin ND 06973158880 1.25 MG Orally Active 1 tablet Daily for Three Weeks, 1 Week off Diazepam ND 30728901680 10 MG Orally Active 1/2 to 1 PRN tablet as needed Losartan Potassium ND 22887973246 50 MG Orally May 24, Active 1 tablet Once a day 2017 (for high blood pressure) Results No Known Results Summary Purpose eClinicalWorks Submission
--- NOTE | 2019-04-25 08:28 | RAD REPORT ---
EXAM DESCRIPTION: CT - CTHCSPWOC - 04/25/2019 8:16 am CLINICAL HISTORY: Right-sided head and neck pain COMPARISON: CT soft tissue neck June 2018 TECHNIQUE: Axial 5 mm thick images of the head were obtained. Axial 2 mm thick images of the cervic al spine were obtained with sagittal and coronal reconstruction images generated and reviewed. All CT scans are performed using dose optimization technique as appropriate and may include automated exposure control or mA/KV adjustment according to patient size. FINDINGS: No intracranial hemorrhage, mass, edema or acute intracranial finding. No suspicion for ac tolowa dee-ni' infarction. No extra-axial fluid collections. Mastoid air cells and paranasal sinuses are clear. No globe or orbit abnormality seen. Normal aeration of the middle ears. No skull palate. Cervical body height and alignment are normal. No disk space narrowing. No fracture or acute bony abn ormality. Multilevel left-sided facet joint degenerative change. No paraspinal mass or hematoma. IMPRESSION: Negative CT head examination for acute or significant finding. Left-sided cervical spine facet joint degenerative change. No acute findings.
[2019-04-25] MEDS ORDERED: HYDROCODONE/APAP 7.5/325 MG TAB ONE (08:38)
[2019-04-25] MEDS ORDERED: ONDANSETRON 4 MG/2 ML VIAL ONE (08:38)
[2019-04-25] MEDS ORDERED: FAMOTIDINE 20 MG/2 ML VIAL IV ONE (08:38)
[2019-04-25 08:40] LABS: Absolute Lymphocytes (CBC) 1.4 K/uL (0.7-4.9); Basophils % 0.5 % (0-1.3); Hematocrit 44.8 % (36.0-45.0); MPV 8.3 fL (7.6-11.3); Monocytes % 6.7 % (3.3-12.3); RBC Red Blood Cell Count 5.09 M/uL (3.86-4.86)
[2019-04-25 08:52] LABS: Potassium 4.5 mmol/L (3.5-5.1)
[2019-04-25] MEDS ORDERED: METHYLPREDNISOLONE 125 MG INJ ONE (09:33)
[2019-04-25] MEDS ORDERED: KETOROLAC 30 MG/ML INJ ONE (09:34)
[2019-04-25] MEDS ORDERED: METOCLOPRAMIDE 10 MG/2mL INJ ONE (09:50)
[2019-04-25] MEDS ORDERED: PANTOPRAZOLE 40 MG INJ ONE (09:50)
--- NOTE | 2019-04-25 11:48 | RAD REPORT ---
EXAM DESCRIPTION: MRI - Brain W/Wo Cont - 04/25/2019 11:35 am CLINICAL HISTORY: Right facial numbness V2 distribution Trauma, head injury, drowsiness COMPARISON: No comparisons TECHNIQUE: Multi-sequence, multiplanar MR imaging of the brain was performed with contrast. FINDINGS: No intracranial hemorrhage, hydrocephalus, or extra-axial fluid collection. No edema or sh ift of midline structures. No intracranial mass. DWI is negative for acute CVA. The midline structures are normally formed. Mastoid air cells and paranasal sinuses are clear. Post-contrast images show no abnormal enhancement to suggest tumor or infection. IMPRESSION: No acute or concerning intracranial abnormalities. No pathologic post-contrast enhancement suspected.
--- NOTE | 2019-04-25 11:55 | ER ---
Nurse's Notes [facility] Name: Hilary Alvarenga Age: 54 yrs Sex: Female : 1965 Arrival Date: 04/25/2019 Time: 07:41 Bed 6 Private MD: Racheal Angulo Diagnosis: Postconcussional syndrome;Superficial injury of head;Paresthesia of skin-Right face Presentation: 04/25 07:52 Presenting complaint: Patient states: hit the back of her right occipital part of her sv head on Monday night on a wall. Has since had right occipital pain, right ear pain, right facial numbness, and neck pain. Pt went to urgent care yesterday but would not see her because of her symptoms and recommended she go to an ER. Pt c/o blurry vision but states she has always had blurry vision. Transition of care: patient was not received from another setting of care. Onset of symptoms was April 23, 2019. Risk Assessment: Do you want to hurt yourself or someone else? Patient reports no desire to harm self or others. Initial Sepsis Screen: Does the patient meet any 2 criteria? No. Patient's initial sepsis screen is negative. Does the patient have a suspected source of infection? No. Patient's initial sepsis screen is negative. Care prior to arrival: None. 07:52 Method Of Arrival: Wheelchair sv 07:52 Acuity: KWASI 3 sv Triage Assessment: 07:52 Headache History: The patient has had previous headaches. General: Appears in no sv apparent distress. uncomfortable, well developed, Behavior is calm, cooperative, appropriate for age. Pain: Complains of pain in right occipital area and right ear Pain currently is 7 out of 10 on a pain scale. Quality of pain is described as throbbing, Pain began 2-3 days ago. Is continuous, Also complains of nausea. Neuro: Level of Consciousness is awake, alert, obeys commands, Oriented to person, place, time, situation, Sap Solution Manager Consultant are equal bilaterally Moves all extremities. Full function Gait is steady, Speech is normal, Facial symmetry appears normal, Reports blurred vision headache numbness in right side of forehead, right restorationism, right zygomatic area and right cheek. Respiratory: Airway is patent Respiratory effort is even, unlabored, Respiratory pattern is regular, symmetrical. Derm: Skin is pink, warm \T\ dry. Musculoskeletal: Range of motion: intact in all extremities. 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 N/A - Hysterectomy sv Historical: - Allergies: 08:17 Amoxicillin; sv 08:17 PENICILLINS; sv - Home Meds: 08:17 esomeprazole magnesium 20 mg Oral cpDR 1 cap once daily [Active]; losartan 50 mg Oral sv tab 1 tab nightly [Active]; pravastatin 10 mg Oral tab 1 tab nightly [Active]; Wellbutrin SR 150 mg Oral TbER 1 tab once daily [Active]; topiramate 50 mg oral tab nightly [Active]; - PMHx: 08:17 Anxiety; Cholelithiasis; Depression; Hyperlipidemia; Migraines; Sleep Apnea; sv Hypertension; - PSHx: 08:17 Hysterectomy; Appendectomy; Carpal Tunnel Repair; Tubal ligation; D \T\ C; gastric sv sleeve; Cholecystectomy; hiatal hernia; - Immunization history:: Adult Immunizations up to date. - Social history:: Smoking status: Patient/guardian denies using tobacco, Patient/guardian denies using alcohol. - Ebola Screening: : No symptoms or risks identified at this time. Screenin:20 Abuse screen: Denies threats or abuse. Denies injuries from another. Nutritional sv screening: No deficits noted. Tuberculosis screening: No symptoms or risk factors identified. Fall Risk None identified. Assessment: 08:42 Reassessment: Patient appears in no apparent distress at this time. Patient and/or sv family updated on plan of care and expected duration. Pain level reassessed. Patient is alert, oriented x 3, equal unlabored respirations, skin warm/dry/pink. GI: Patient currently denies nausea. 09:26 Reassessment: Patient appears in no apparent distress at this time. No changes from previously documented assessment. Patient and/or family updated on plan of care and expected duration. Pain level reassessed. Patient is alert, oriented x 3, equal unlabored respirations, skin warm/dry/pink. Pt c/o stomach burning and nausea. Informed Dr Graham, medication order received. 11:00 Reassessment: Patient appears in no apparent distress at this time. Patient and/or sv family updated on plan of care and expected duration. Pain level reassessed. Patient is alert, oriented x 3, equal unlabored respirations, skin warm/dry/pink. Informed MRI would be here within the hour. 12:41 Reassessment: Patient appears in no apparent distress at this time. Patient and/or sv family updated on plan of care and expected duration. Pain level reassessed. Patient is alert, oriented x 3, equal unlabored respirations, skin warm/dry/pink. Patient states feeling better. Patient states symptoms have improved. Vital Signs: 07:55 BP 136 / 77; Pulse 74; Resp 16; Temp 98; Pulse Ox 100% ; Weight 77.11 kg; Height 4 ft. sv 11 in. (149.86 cm); Pain 7/10; 08:42 BP 123 / 70; Pulse 65; Resp 18; Pulse Ox 97% ; sv 09:14 BP 114 / 72; Pulse 64; Resp 18; Pulse Ox 98% ; sv 09:58 BP 131 / 65; Pulse 61; Resp 18; Pulse Ox 97% on R/A; sv 10:30 BP 101 / 52; Pulse 62; Resp 18; Pulse Ox 98% ; sv 11:50 BP 98 / 59; Pulse 72; Resp 18; Pulse Ox 94% ; sv 12:30 BP 102 / 60; Pulse 66; Resp 18; Pulse Ox 99% ; sv 07:55 Body Mass Index 34.34 (77.11 kg, 149.86 cm) sv ED Course: 07:41 Patient arrived in ED. as 07:41 Racheal Angulo MD is Private Physician. as 07:50 Mo Graham MD is Attending Physician. kdr 07:52 Arm band placed on Patient placed in an exam room, on a stretcher, on athletic monitor, sv on pulse oximetry. 07:52 Patient has correct armband on for positive identification. Placed in gown. Bed in low sv position. Call light in reach. Side rails up X 1. Adult w/ patient. laboratory monitor on. Pulse ox on. NIBP on. Door closed. Warm blanket given. Head of bed elevated. 08:10 Initial lab(s) drawn, by me, sent to lab. Inserted saline lock: 20 gauge in right sv antecubital area, using aseptic technique. Blood collected. Flushed right antecubital with 5 ml normal saline. 08:11 Eveline Lux RN is Primary Nurse. sv 08:13 Triage completed. sv 08:[address] via stretcher. sv 08:16 CT Head C Spine In Process Unspecified. EDMS 08:[address]. sv 08:20 Awaiting lab results, Awaiting radiology results. sv 09:14 Awaiting: MRI. sv 10:03 Awaiting: MRI. sv 11:36 Brain W/Wo Cont In Process Unspecified. EDMS 11:41 Awaiting radiology results. Patient moved back from MRI. sv 11:53 Racheal Angulo MD is Referral Physician. kdr 11:53 Donald Tijerina MD is Referral Physician. kdr 12:41 No provider procedures requiring assistance completed. IV discontinued, intact, sv bleeding controlled, No redness/swelling at site. Pressure dressing applied. Administered Medications: 08:29 Drug: Pepcid 20 mg Route: IVP; Site: right antecubital; sv 08:41 Follow up: Response: No adverse reaction; Nausea is decreased sv 08:30 Drug: Zofran 4 mg Route: IVP; Site: right antecubital; sv 08:41 Follow up: Response: No adverse reaction; Nausea is decreased sv 08:41 Drug: [place] (7.5 mg-325 mg) 1 tabs Route: PO; sv 09:26 Follow up: Response: No adverse reaction; No change in condition sv 09:26 Drug: TORadol - Ketorolac 15 mg Route: IVP; Site: right antecubital; sv 09:38 Follow up: Response: No adverse reaction sv 09:28 Drug: SOLU-Medrol 125 mg Route: IVP; Site: right antecubital; sv 09:38 Follow up: Response: No adverse reaction sv 09:38 Drug: ProTONIX 40 mg Route: IVP; Site: right antecubital; sv 10:00 Follow up: Response: No adverse reaction sv 09:40 Drug: Reglan 10 mg Route: IVP; Infused Over: 2 mins; Site: right antecubital; sv 10:00 Follow up: Response: No adverse reaction sv Outcome: 11:54 Discharge ordered by . kdr 12:41 Patient left the ED. sv 12:41 Discharged to home ambulatory, with family. sv 12:41 Condition: stable 12:41 Condition: improved 12:41 Discharge instructions given to patient, family, Instructed on discharge instructions, follow up and referral plans. medication usage, Demonstrated understanding of instructions, follow-up care, medications, Prescriptions given X 3. Signatures: Dispatcher [employer] Eveline Green RN RN sv Mo Graham MD MD kdr Martinez, Amelia as Corrections: (The following items were deleted from the chart) 08:19 07:52 Presenting complaint: Patient states: hit the back of her left occipital part of sv her head on Monday night on a wall. Has since had left occipital pain, left ear pain, left facial numbness, and neck pain. Pt went to urgent care yesterday but would not see her because of her symptoms and recommended she go to an ER. Pt c/o blurry vision but states she has always had blurry vision. sv
--- NOTE | 2019-04-25 11:55 | EDPHYS ---
Physician Documentation [facility] Name: Hilary Alvarenga Age: 54 yrs Sex: Female : 1965 Arrival Date: 04/25/2019 Time: 07:41 Bed 6 Private MD: Racheal Angulo ED Physician Mo Graham HPI: 04/25 08:10 This 54 yrs old Female presents to ER via Unassigned with complaints of kdr Headache, Ear Pain, Numbness Of Face. 08:11 The patient states that she hit her head two nights ago and now has pain in her right kdr ear and numbness to the right mid face. She denies LOC at the time. States that she was sitting herself up against a wall and pillow and when she did it, she hit her head against the wall very hard. Her vision went back for a few seconds and she "saw stars" but did not have any LOC. Since she has had pain on the back of her head and numbness to the right face. She denies any persistent visual changes. Onset: The symptoms/episode began/occurred suddenly, 2 day(s) ago. Severity of symptoms: At their worst the symptoms were mild moderate just prior to arrival, in the emergency department the symptoms are unchanged. The patient has not experienced similar symptoms in the past. The patient has not recently seen a physician, She attempted to be seen at Urgent Care yesterday but they refused. 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 N/A - Hysterectomy sv Historical: - Allergies: 08:17 Amoxicillin; sv 08:17 PENICILLINS; sv - Home Meds: 08:17 esomeprazole magnesium 20 mg Oral cpDR 1 cap once daily [Active]; losartan 50 mg Oral sv tab 1 tab nightly [Active]; pravastatin 10 mg Oral tab 1 tab nightly [Active]; Wellbutrin SR 150 mg Oral TbER 1 tab once daily [Active]; topiramate 50 mg oral tab nightly [Active]; - PMHx: 08:17 Anxiety; Cholelithiasis; Depression; Hyperlipidemia; Migraines; Sleep Apnea; sv Hypertension; - PSHx: 08:17 Hysterectomy; Appendectomy; Carpal Tunnel Repair; Tubal ligation; D \\T\\ C; gastric sv sleeve; Cholecystectomy; hiatal hernia; - Immunization history:: Adult Immunizations up to date. - Social history:: Smoking status: Patient/guardian denies using tobacco, Patient/guardian denies using alcohol. - Ebola Screening: : No symptoms or risks identified at this time. ROS: 08:11 Constitutional: Negative for fever, chills, and weight loss, Eyes: Negative for injury, kdr pain, redness, and discharge, ENT: Negative for injury, pain, and discharge, Cardiovascular: Negative for chest pain, palpitations, and edema, Respiratory: Negative for shortness of breath, cough, wheezing, and pleuritic chest pain, Abdomen/GI: Negative for abdominal pain, nausea, vomiting, diarrhea, and constipation, Back: Negative for injury and pain, : Negative for injury, bleeding, discharge, and swelling, MS/Extremity: Negative for injury and deformity, Skin: Negative for injury, rash, and discoloration, Psych: Negative for depression, anxiety, suicide ideation, homicidal ideation, and hallucinations, Allergy/Immunology: Negative for hives, rash, and allergies, Endocrine: Negative for neck swelling, polydipsia, polyuria, polyphagia, and marked weight changes, Hematologic/Lymphatic: Negative for swollen nodes, abnormal bleeding, and unusual bruising. 08:11 Neck: Positive for pain with movement, pain at rest, tenderness, of the scalp and right posterior aspect of neck. 08:11 Neuro: Positive for numbness, of the right zygomatic area. Exam: 08:11 Constitutional: This is a well developed, well nourished patient who is awake, alert, kdr and in no acute distress. Head/Face: Normocephalic, atraumatic. Eyes: Pupils equal round and reactive to light, extra-ocular motions intact. Lids and lashes normal. Conjunctiva and sclera are non-icteric and not injected. Cornea within normal limits. Periorbital areas with no swelling, redness, or edema. Neck: Trachea midline, no thyromegaly or masses palpated, and no cervical lymphadenopathy. Supple, full range of motion without nuchal rigidity, or vertebral point tenderness. No Meningismus. Chest/axilla: Normal chest wall appearance and motion. Nontender with no deformity. No lesions are appreciated. Cardiovascular: Regular rate and rhythm with a normal S1 and S2. No gallops, murmurs, or rubs. Normal PMI, no JVD. No pulse deficits. Respiratory: Lungs have equal breath sounds bilaterally, clear to auscultation and percussion. No rales, rhonchi or wheezes noted. No increased work of breathing, no retractions or nasal flaring. Abdomen/GI: Soft, non-tender, with normal bowel sounds. No distension or tympany. No guarding or rebound. No evidence of tenderness throughout. Back: No spinal tenderness. No costovertebral tenderness. Full range of motion. Skin: Warm, dry with normal turgor. Normal color with no rashes, no lesions, and no evidence of cellulitis. MS/ Extremity: Pulses equal, no cyanosis. Neurovascular intact. Full, normal range of motion. Psych: Awake, alert, with orientation to person, place and time. Behavior, mood, and affect are within normal limits. 08:11 Neuro: Sensation: numbness, that is mild, of the right cheek and right zygomatic area. Vital Signs: 07:55 BP 136 / 77; Pulse 74; Resp 16; Temp 98; Pulse Ox 100% ; Weight 77.11 kg; Height 4 ft. sv 11 in. (149.86 cm); Pain 7/10; 08:42 BP 123 / 70; Pulse 65; Resp 18; Pulse Ox 97% ; sv 09:14 BP 114 / 72; Pulse 64; Resp 18; Pulse Ox 98% ; sv 09:58 BP 131 / 65; Pulse 61; Resp 18; Pulse Ox 97% on R/A; sv 10:30 BP 101 / 52; Pulse 62; Resp 18; Pulse Ox 98% ; sv 11:50 BP 98 / 59; Pulse 72; Resp 18; Pulse Ox 94% ; sv 12:30 BP 102 / 60; Pulse 66; Resp 18; Pulse Ox 99% ; sv 07:55 Body Mass Index 34.34 (77.11 kg, 149.86 cm) sv MDM: 11:54 Patient medically screened. kdr 13:13 Data reviewed: vital signs, nurses notes, lab test result(s), radiologic studies. kdr Counseling: I had a detailed discussion with the patient and/or guardian regarding: the historical points, exam findings, and any diagnostic results supporting the discharge/admit diagnosis, lab results, radiology results, the need for outpatient follow up. 04/25 08:02 Order name: CBC with Diff; Complete Time: 08:56 kdr 04/25 08:02 Order name: Chem 7; Complete Time: 08:56 kdr 04/25 08:02 Order name: CT Head C Spine; Complete Time: 08:56 kdr 04/25 11:36 Order name: Brain W/Wo Cont; Complete Time: 11:52 EDMS Administered Medications: 08:29 Drug: Pepcid 20 mg Route: IVP; Site: right antecubital; sv 08:41 Follow up: Response: No adverse reaction; Nausea is decreased sv 08:30 Drug: Zofran 4 mg Route: IVP; Site: right antecubital; sv 08:41 Follow up: Response: No adverse reaction; Nausea is decreased sv 08:41 Drug: [place] (7.5 mg-325 mg) 1 tabs Route: PO; sv 09:26 Follow up: Response: No adverse reaction; No change in condition sv 09:26 Drug: TORadol - Ketorolac 15 mg Route: IVP; Site: right antecubital; sv 09:38 Follow up: Response: No adverse reaction sv 09:28 Drug: SOLU-Medrol 125 mg Route: IVP; Site: right antecubital; sv 09:38 Follow up: Response: No adverse reaction sv 09:38 Drug: ProTONIX 40 mg Route: IVP; Site: right antecubital; sv 10:00 Follow up: Response: No adverse reaction sv 09:40 Drug: Reglan 10 mg Route: IVP; Infused Over: 2 mins; Site: right antecubital; sv 10:00 Follow up: Response: No adverse reaction sv Disposition: 04/25/19 11:54 Discharged to Home. Impression: Postconcussional syndrome, Superficial injury of head, Paresthesia of skin - Right face. - Condition is Stable. - Discharge Instructions: Post-Concussion Syndrome, [id number], Peripheral Neuropathy, Concussion, Adult, [id number], Head Injury, Adult, [id number], Paresthesia, [id number]-[id number]. - Prescriptions for Ibuprofen 600 mg Oral Tablet - take 1 tablet by ORAL route every 6 hours As needed take with food; 30 tablet. Medrol (Rodrigo) 4 mg Oral Tablets, Dose Pack - take 1 tablet by ORAL route as directed - follow package instructions; 1 packet. Pepcid 20 mg Oral Tablet - take 1 tablet by ORAL route once daily; 20 tablet. - Work release form, Medication Reconciliation Form, Thank You Letter form. - Follow up: Racheal Angulo MD; When: 2 - 3 days; Reason: If symptoms return, Further diagnostic work-up, Recheck today's complaints, Continuance of care, Re-evaluation by your physician. Follow up: Donald Tijerina MD; When: 1 - 2 days; Reason: If symptoms return, Further diagnostic work-up, Recheck today's complaints, Continuance of care, Re-evaluation by your physician. - Problem is new. - Symptoms are unchanged. Signatures: Dispatcher [employer] [facility] Eveline Lux RN RN Mo Graham MD MD kdr Corrections: (The following items were deleted from the chart) 11:36 09:01 Brain With Cont+MRI.RAD.BRZ ordered. [facility] 12:41 11:54 04/25/2019 11:54 Discharged to Home. Impression: Postconcussional syndrome; sv Superficial injury of head; Paresthesia of skin - Right face. Condition is Stable. Forms are Medication Reconciliation Form, Thank You Letter, Antibiotic Education, Prescription Opioid Use. Follow up: Racheal Angulo; When: 2 - 3 days; Reason: If symptoms return, Further diagnostic work-up, Recheck today's complaints, Continuance of care, Re-evaluation by your physician. Follow up: Donald Tijerina; When: 1 - 2 days; Reason: If symptoms return, Further diagnostic work-up, Recheck today's complaints, Continuance of care, Re-evaluation by your physician. Problem is new. Symptoms are unchanged. kdr
== END 2019-04-25 12:41 | disposition home or self-care (01) ==
LOC: ER 07:39
DX: F07.81 Postconcussional syndrome (principal); S00.90XA Unspecified superficial injury of unspecified part of head, initial encounter; W22.8XXA Striking against or struck by other objects, initial encounter; Y93.89 Activity, other specified; Y92.9 Unspecified place or not applicable; R20.2 Paresthesia of skin; F41.9 Anxiety disorder, unspecified; F32.9 Major depressive disorder, single episode, unspecified; I10 Essential (primary) hypertension; E78.5 Hyperlipidemia, unspecified; Z88.0 Allergy status to penicillin; Z88.1 Allergy status to other antibiotic agents
CPT/HCPCS: 36415; 70450; 70553; 72125; 80048; 85025; 96374; 96375; 99285; A9577; C9113; J2405; J2765; J2930